=== PATIENT | male | born 1980 | race African-American/Black ===

== ENCOUNTER 2017-08-19 13:00 | Emergency (ER) | payer BC | END 2017-08-19 14:25 | disposition home or self-care (01) | LOC: ER 13:00 | DX: S39.012A Strain of muscle, fascia and tendon of lower back, initial encounter (principal); F12.10 Cannabis abuse, uncomplicated; X50.0XXA Overexertion from strenuous movement or load, initial encounter; Y93.89 Activity, other specified; Y99.8 Other external cause status; Y92.89 Other specified places as the place of occurrence of the external cause | CPT/HCPCS: 99283 ==